=== PATIENT | male | born 1950 | race Caucasian/White ===

== ENCOUNTER 2017-12-04 08:21 | Emergency (ER) | payer OTHER ==
[~2017-12-04] VITALS: Ht 172.7 cm; Wt 122.5 kg
[~2017-12-04 08:21] MED LIST: ALPR1TAB2 PO; ASPI81CH49 PO; ATOR20TA PO; CLOP75TA28 PO; FEBU40TA PO; LISI-646 PO; METO-159 PO
[2017-12-04 15:10] VITALS: BP 152/82
== END 2017-12-04 15:11 | disposition home or self-care (01) ==
LOC: ER 08:21
DX: J10.1 Influenza due to other identified influenza virus with other respiratory manifestations (principal); I10 Essential (primary) hypertension; I25.810 Atherosclerosis of coronary artery bypass graft(s) without angina pectoris; Z95.5 Presence of coronary angioplasty implant and graft
CPT/HCPCS: 71046; 87400

== ENCOUNTER 2022-12-25 11:16 | Emergency (ER) | payer OTHER ==
[~2022-12-25] VITALS: Ht 172.7 cm; Wt 115.0 kg
[~2022-12-25 11:16] MED LIST changes: -LISI-646 PO; +LISI20TA28 PO
[2022-12-25 11:55] LABS: Basophils # (auto) 0.1 10 ^3/uL (0-0.2); Basophils % (auto) 1.1 % (0.0-2.0); Eosinophils # (auto) 0.1 10 ^3/uL (0-0.8); Eosinophils % (auto) 2.6 % (0.0-7.0); Hematocrit 42.9 % (41.0-53.0); Hemoglobin 14.2 g/dL (13.5-17.5); Lymphocytes # (auto) 1.2 10 ^3/uL (0.4-5.4); Lymphocytes % (auto) 21.1 % (10.0-50.0); Mean Corpuscular Hemoglobin 30.3 pg (28.0-32.0); Mean Corpuscular Hgb Conc. 33.1 g/dL (32.0-36.0); Mean Corpuscular Volume 91.6 fL (80.0-100.0); Monocytes # (auto) 0.4 10 ^3/uL (0-1.3); Monocytes % (auto) 7.2 % (0.0-12.0); Neutrophils # (auto) 3.8 10 ^3/uL (1.6-8.6); Red Blood Cells 4.68 10^6/uL (4.5-5.90); Red Cell Distribution Width 14.6 % (11.8-14.3); White Blood Cell 5.6 10^3/uL (4.4-10.8)
[2022-12-25 12:29] LABS: BUN/Creatinine Ratio 15.2; Potassium 3.8 mmol/L (3.5-5.1)
[2022-12-25 12:30] LABS: Albumin 4.1 g/dL (3.4-5.0); Bilirubin, Total 0.7 mg/dL (0.2-1.0); Total Protein 6.8 g/dL (6.4-8.2)
[2022-12-25] MEDS ORDERED: GABAPENTIN 300 MG CAP PO ONE (12:30)
[2022-12-25 12:35] LABS: Urine Bacteria NONE SEEN /hpf (None Seen); Urine Blood Negative /uL (Negative); Urine Mucus FEW (None Seen); Urine Specific Gravity 1.009 (1.001-1.035); Urine WBC 1 /hpf (0 - 3)
[2022-12-25] MEDS ORDERED: DOCUSATE SOD 100 MG CAP PO ONE (12:45)
[2022-12-25] MEDS ORDERED: POLYETHYLENE GLYCOL 17 GM PWDR PO ONE (12:45)
[2022-12-25] MEDS ORDERED: SENNA 8.6 MG TAB PO ONE (12:45)
[2022-12-25] MEDS ORDERED: MILK OF MAGNESIA 30ML SUSP PO ONE (12:45)
[2022-12-25] MEDS ORDERED: LACTULOSE 20Gm/30ML SOLN PO ONE (12:45)
[2022-12-25] MEDS ORDERED: DOCU-94 PO (12:47)
[2022-12-25 13:05] VITALS: BP 158/70
== END 2022-12-25 13:06 | disposition home or self-care (01) ==
LOC: ER 11:16
DX: K59.00 Constipation, unspecified (principal); M79.622 Pain in left upper arm; F41.9 Anxiety disorder, unspecified; I25.10 Atherosclerotic heart disease of native coronary artery without angina pectoris; E78.5 Hyperlipidemia, unspecified; I10 Essential (primary) hypertension; Z79.899 Other long term (current) drug therapy; Z98.890 Other specified postprocedural states
CPT/HCPCS: 36415; 71045; 80053; 81001; 83690; 83880; 84484; 85025; 93005

== ENCOUNTER 2024-05-03 10:52 | Inpatient (IN) | payer OTHER ==
[~2024-05-03] VITALS: Ht 172.7 cm; Wt 106.0 kg
[~2024-05-03 10:52] MED LIST changes: +DOCU-94 PO; -LISI20TA28 PO; +LISI20TA56 PO
[2024-05-03] MEDS: ACETAMINOPHEN 325 MG TAB PO ONE (11:08)
[2024-05-03 13:00] LABS: Basophils # (auto) 0 10 ^3/uL (0-0.2); Basophils % (auto) 0.4 % (0.0-2.0); Eosinophils # (auto) 0 10 ^3/uL (0-0.8); Eosinophils % (auto) 0.1 % (0.0-7.0); Hemoglobin 14.4 g/dL (13.5-17.5); Lymphocytes % (auto) 12.2 % (10.0-50.0); Mean Corpuscular Hemoglobin 31.1 pg (28.0-32.0); Mean Corpuscular Hgb Conc. 33.6 g/dL (32.0-36.0); Mean Corpuscular Volume 92.7 fL (80.0-100.0); Monocytes # (auto) 1.4 10 ^3/uL (0-1.3); Neutrophils # (auto) 5.6 10 ^3/uL (1.6-8.6); Neutrophils % (auto) 70.3 % (37.0-80.0); Nucleated Red Blood Cells % 0.1 %; Red Blood Cells 4.63 10^6/uL (4.5-5.90); Red Cell Distribution Width 13.8 % (11.8-14.3)
[2024-05-03] MEDS: cefTRIAXone 1GM/50ML D5W 50 ML IV ONE (13:16)
[2024-05-03] MEDS: AZITHROMYCIN 500MG/ 250ML 250 ML IV ONE (13:16)
[2024-05-03 13:26] LABS: Alanine Aminotransferase 28 U/L (7-40); Albumin 4.6 g/dL (3.2-4.8); Alkaline Phosphatase 83 U/L (46-116); Anion Gap 7 (5-15); Aspartate Aminotransferase 20 U/L (13-40); BUN/Creatinine Ratio 12.9 (10.0-20.0); Bilirubin, Total 0.8 mg/dL (0.2-1.0); Blood Urea Nitrogen 13 mg/dL (9-23); Carbon Dioxide 23 mmol/L (20-30); Chloride 103 mmol/L (98-107); Glucose 147 mg/dL (74-106); Potassium 3.6 mmol/L (3.5-5.1); Sodium 133 mmol/L (136-145); Total Protein 7.5 g/dL (5.7-8.2)
[2024-05-03] MEDS ORDERED: MORPHINE SULFATE INJ 2 MG/ml SYRG IV PRN (14:15)
[2024-05-03] MEDS ORDERED: ONDANSETRON HCL 4 MG/2 ML VIAL IV PRN (14:15)
[2024-05-03] MEDS ORDERED: DOCUSATE SOD 100 MG CAP PO PRN (14:15)
[2024-05-03] MEDS ORDERED: DEXTROSE (50%) 50ML SYRG IV PRN (14:15)
[2024-05-03 15:05] LABS: COVID19 ANTIGEN SOFIA FIA NEGATIVE (NEGATIVE)
[2024-05-03] MEDS ORDERED: ALPRAZolam 0.5 MG TAB PO SCH (15:15)
[2024-05-03] MEDS: SODIUM CHLORIDE 0.9% 1,000 ML IV SCH (16:42)
[2024-05-03] MEDS: InsuLIN REG 1unit/0.01ml Soln (100units/ml) SC SCH (17:00)
[2024-05-03] MEDS: ACCU-CHEK COMFORT CURVE STRIP VI SCH (17:25)
[2024-05-03] MEDS ORDERED: IBUPROFEN 600 MG TAB PO PRN (19:00)
[2024-05-03] MEDS: IBUPROFEN 600 MG TAB PO ONE (19:13)
[2024-05-03] MEDS: HYDROcodone-ACET 5/325MG TAB PO ONE (19:13)
[2024-05-03] MEDS: ATORVASTATIN 20 MG TAB PO SCH (22:00)
[2024-05-03] MEDS: DOCUSATE SOD 100 MG CAP PO SCH (22:00)
[2024-05-03 23:30] VITALS: BP 133/55; PULSE 69; RESP 14; TEMP 98.2; O2SAT 97
[2024-05-03 23:54] VITALS: BP 133/55; PULSE 69; RESP 14; TEMP 98.2; O2SAT 97
[2024-05-04] VITALS (7 sets, daily range): BP systolic 99–157; BP diastolic 52–79; PULSE 67–90; RESP 14–20; TEMP 98–99.9; O2SAT 93–97
[2024-05-04] MEDS ORDERED: FURO20TA3 PO (00:01)
[2024-05-04 06:37] LABS: Alanine Aminotransferase 30 U/L (7-40); Alkaline Phosphatase 70 U/L (46-116); Anion Gap 11 (5-15); Aspartate Aminotransferase 25 U/L (13-40); Bilirubin, Total 0.6 mg/dL (0.2-1.0); Blood Urea Nitrogen 16 mg/dL (9-23); Calcium 9.8 mg/dL (8.7-10.4); Carbon Dioxide 22 mmol/L (20-30); Chloride 108 mmol/L (98-107); Glucose 104 mg/dL (74-106); Potassium 3.7 mmol/L (3.5-5.1); Sodium 141 mmol/L (136-145); Total Protein 6.6 g/dL (5.7-8.2)
[2024-05-04 07:24] LABS: Hematocrit 40.6 % (41.0-53.0); Hemoglobin 13.8 g/dL (13.5-17.5); Mean Corpuscular Hemoglobin 31.6 pg (28.0-32.0); Mean Corpuscular Hgb Conc. 34.1 g/dL (32.0-36.0); Mean Corpuscular Volume 92.8 fL (80.0-100.0); Red Blood Cells 4.37 10^6/uL (4.5-5.90); Red Cell Distribution Width 13.7 % (11.8-14.3); White Blood Cell 5.7 10^3/uL (4.4-10.8)
[2024-05-04 07:32] LABS: Basophils % (manual) 0 (0.0-2.0); Blast Cells 0; Eosinophils % (manual) 0 (0-7); Metamyelocytes % 0; Myelocytes % 0; Promyelocytes % 0; Reactive Lymphocytes 0
[2024-05-04] MEDS: cefTRIAXone 1GM/50ML D5W 50 ML IV SCH (08:31)
[2024-05-04 09:27] LABS: Band Neutrophils % (manual) 5; Lymphocytes % (manual) 17 (10.0-50.0); Monocytes % (manual) 13 (0-12)
[2024-05-04 09:28] LABS: Platelet Estimate Decreased
[2024-05-04] MEDS: AZITHROMYCIN 500MG/ 250ML 250 ML IV SCH (09:56)
[2024-05-04] MEDS: CLOPIDOGREL BISULFATE 75 MG TAB PO SCH (09:57)
[2024-05-04] MEDS: ASPirin 81 mg TAB PO SCH (09:57)
[2024-05-04] MEDS: LISINOPRIL 20 MG TAB PO SCH (09:59)
[2024-05-04] MEDS ORDERED: METOPROLOL TARTRATE 50 MG TAB PO SCH (10:00)
[2024-05-04] MEDS: HYDROcodone-ACET 5/325MG TAB PO PRN (10:11)
[2024-05-05 08:25] VITALS: BP 150/77; PULSE 74; RESP 20; TEMP 98.7; O2SAT 97
[2024-05-05 12:20] VITALS: BP 114/74; PULSE 72; RESP 18; TEMP 98.7; O2SAT 97
[2024-05-05 16:25] VITALS: BP 126/71; PULSE 61; RESP 18; TEMP 98.9; O2SAT 98
[2024-05-05] MEDS ORDERED: LEVO500T91 PO (16:59)
[2024-05-05] MEDS: IOHEXOL 350 MG/ML 100ML IJ ONE (17:04)
[2024-05-05 17:57] VITALS: BP 150/77; TEMP 37.2
== END 2024-05-05 18:35 | disposition home or self-care (01) | DRG 194 ==
LOC: ER 10:52 → OVERFLOW 15:55 → WEST WING 23:33
PROVIDERS: ADMIT Internal Medicine; ATTEND Internal Medicine
DX: J15.9 Unspecified bacterial pneumonia (principal); E87.1 Hypo-osmolality and hyponatremia; J98.11 Atelectasis; E78.5 Hyperlipidemia, unspecified; E11.65 Type 2 diabetes mellitus with hyperglycemia; I10 Essential (primary) hypertension; B02.9 Zoster without complications; I25.10 Atherosclerotic heart disease of native coronary artery without angina pectoris; Z20.822 Contact with and (suspected) exposure to COVID-19; F41.9 Anxiety disorder, unspecified; Z95.1 Presence of aortocoronary bypass graft; Z87.01 Personal history of pneumonia (recurrent); Z86.73 Personal history of transient ischemic attack (TIA), and cerebral infarction without residual deficits
CPT/HCPCS: 36415; 71046; 71275; 80053; 82962; 83605; 85007; 85025; 85027; 87040; 87426; 93005; 96365; 96375; G0378; J1815

== ENCOUNTER 2024-08-06 17:52 | Emergency (ER) | payer OTHER ==
[~2024-08-06] VITALS: Ht 172.7 cm; Wt 101.0 kg
[2024-08-06 17:52] VITALS: BP 122/85; PULSE 68; RESP 18; O2SAT 98
[~2024-08-06 17:52] MED LIST changes: +FURO20TA3 PO; +LEVO500T91 PO
[2024-08-06 20:19] LABS: Basophils # (auto) 0.1 10 ^3/uL (0-0.2); Basophils % (auto) 0.9 % (0.0-2.0); Eosinophils # (auto) 0.1 10 ^3/uL (0-0.8); Hemoglobin 14.9 g/dL (13.5-17.5); Lymphocytes # (auto) 2.2 10 ^3/uL (0.4-5.4); Mean Corpuscular Hemoglobin 30.2 pg (28.0-32.0); Mean Corpuscular Hgb Conc. 33.8 g/dL (32.0-36.0); Mean Corpuscular Volume 89.2 fL (80.0-100.0); Monocytes # (auto) 0.6 10 ^3/uL (0-1.3); Neutrophils % (auto) 57.1 % (37.0-80.0); Platelet Count (auto) 145 10^3/uL (140-450); Red Blood Cells 4.93 10^6/uL (4.5-5.90); Red Cell Distribution Width 14.2 % (11.8-14.3)
[2024-08-06 20:29] LABS: Anion Gap 9 (5-15); Carbon Dioxide 20 mmol/L (20-30); Chloride 111 mmol/L (98-107); Sodium 140 mmol/L (136-145)
[2024-08-06 20:30] LABS: Calcium 10.2 mg/dL (8.7-10.4)
[2024-08-06 20:35] LABS: BUN/Creatinine Ratio 12.5 (10.0-20.0); Blood Urea Nitrogen 12 mg/dL (9-23); Glucose 95 mg/dL (74-106)
[2024-08-06 20:50] LABS: INR 1.02 (0.9-1.15); Partial Thromboplastin Time 30.5 SEC (24.5-34.5); Prothrombin Time 10.8 sec (9.3-11.8)
== END 2024-08-06 21:35 | disposition left against medical advice (07) ==
LOC: ER 17:52
DX: C44.712 Basal cell carcinoma of skin of right lower limb, including hip (principal); I10 Essential (primary) hypertension; E11.9 Type 2 diabetes mellitus without complications; E78.5 Hyperlipidemia, unspecified; Z88.1 Allergy status to other antibiotic agents; Z48.817 Encounter for surgical aftercare following surgery on the skin and subcutaneous tissue; Z79.899 Other long term (current) drug therapy; Z79.01 Long term (current) use of anticoagulants
CPT/HCPCS: 36415; 80048; 85025; 85610; 85730